=== PATIENT | female | born 1945 | race Caucasian/White ===

== ENCOUNTER 2018-08-15 13:38 | Outpatient (CLI) | payer MEDICARE ==
--- NOTE | 2018-08-15 14:03 | BD ---
Exam: DEXA Bone Density Comparison: 07-17-13 History: 72-year-old post-menopausal female for screening. Lumbar Spine: BMD (g/cm2) L1 0.904 T-Score: -0.8 L2 1.177 T-Score: 1.4 L3 1.167 T-Score: 0.8 L4 1.152 T-Score: 0.8 L1-L4 1.102 T-Score: 0.5 Femoral Neck: 0.639 T-Score: -1.9 Total Femur: 0.864 T-Score: -0.6 Impression: Osteopenia. This patient has a 10-year WHO fracture risk of a major osteoporotic fracture of 12% and hip fracture 2.9%. POS: [facility]
== END 2018-08-15 13:39 | disposition home or self-care (01) ==
LOC: BICMAMMO 13:38
PROVIDERS: ATTEND Internal Medicine
DX: M85.89 Other specified disorders of bone density and structure, multiple sites (principal)
CPT/HCPCS: 77080